=== PATIENT | male | born 1930 | race Caucasian/White ===

== ENCOUNTER → 2017-10-20 09:48 | Outpatient (CLI) | payer MEDICARE ==
[2014-06-29 13:00] VITALS: BMI 22.8
[~2017-10-20 09:48] MED LIST: METOPROLOL TART50 MG PO; PRILOSEC20 MG PO
== END | disposition home or self-care (01) ==
LOC: D.RAD 09:48
DX: K57.90 Diverticulosis of intestine, part unspecified, without perforation or abscess without bleeding (principal); K92.1 Melena; K59.09 Other constipation

== ENCOUNTER 2018-08-24 12:24 | Emergency (ER) | payer MEDICARE ==
[~2018-08-24] VITALS: Ht 175.3 cm; Wt 55.9 kg
[2018-08-24 12:30] VITALS: Ht 175.3 cm; Wt 55.9 kg
[2018-08-24] MEDS ORDERED: BAYER CHEWABLE81 MG PO (12:32)
[2018-08-24 13:02] LABS: BASOPHILS 0.1 % (0-2); EOSINOPHILS 0.2 % (0-7); HEMATOCRIT 41.5 % (42.0-54.0); HEMOGLOBIN 13.6 g/dL (13.5-17.5); IMMATURE GRANULOCYTES 0.4 % (0-5); LYMPHOCYTES 6.9 % (15-50); MCHC 32.8 g/dL (31.0-37.0); MCV 100.7 fL (80.0-100.0); MEAN PLATELET VOLUME 9.5 fL (7.4-10.4); MONOCYTES 4.5 % (2-11); NEUTROPHILS 87.9 % (40-80); PLATELET COUNT 128 10x3/uL (130-400); RBC 4.12 10x6/uL (4.20-6.10); RDW 12.6 % (11.5-14.5); WBC 9.6 10x3/uL (4.8-10.8)
[2018-08-24] MEDS ORDERED: ALBUTEROL SULF8.5 GM INH (15:28)
[2018-08-24 16:14] VITALS: BP 124/72
== END 2018-08-24 16:14 | disposition home or self-care (01) ==
LOC: D.ER 12:24
PROVIDERS: Family Medicine
DX: J20.9 Acute bronchitis, unspecified (principal); R11.0 Nausea

== ENCOUNTER → 2020-09-01 12:52 | Outpatient (CLI) | payer MEDICARE ==
[2020-05-05 13:10] VITALS: BMI 20.7
[~2020-09-01 12:52] MED LIST changes: +ALBUTEROL SULF8.5 GM INH; +BAYER CHEWABLE81 MG PO
== END | disposition home or self-care (01) ==
LOC: D.US 12:52
PROVIDERS: ATTEND Internal Medicine Cardiovascular Disease
DX: I65.23 Occlusion and stenosis of bilateral carotid arteries (principal)